=== PATIENT | male | born 1930 | race Caucasian/White ===

== ENCOUNTER 2017-02-11 10:58 | Day surgery (SDC) | payer OTHER ==
[2017-02-11] VITALS (9 sets, daily range): BP systolic 114–156; BP diastolic 52–65; PULSE 60–66; RESP 15–20; Ht 170.2 cm; Wt 75.7 kg
[~2017-02-11] VITALS: Ht 170.2 cm; Wt 75.7 kg
[~2017-02-11 10:58] MED LIST: BENA40TA41 PO; CLOP75TA4 PO; GLIM2TAB PO
[2017-02-11] MEDS ORDERED: FURO20TA3 PO (11:58)
[2017-02-11] MEDS ORDERED: CHOL400T10 PO (11:58)
[2017-02-11] MEDS ORDERED: MECL-77 PO (11:58)
[2017-02-11] MEDS ORDERED: TAMS0.4C2 PO (11:58)
[2017-02-11] MEDS ORDERED: DOXA1TAB38 PO (12:39)
[2017-02-11] MEDS ORDERED: FENTAnyl 50 MCG/ML VIAL ONE (13:00)
[2017-02-11] MEDS ORDERED: IODIXANOL LOCM 100 ML BTL ONE ×2 (13:00→14:18)
[2017-02-11] MEDS ORDERED: LIDOCAINE 1% (MDV) 20 ML INJ ONE (13:00)
[2017-02-11] MEDS ORDERED: MIDAZOLAM 1 MG/ML 2 ML INJ ONE (13:00)
[2017-02-11] MEDS ORDERED: DIPHENHYDRAMINE 50 MG INJ ONE (13:02)
[2017-02-11] MEDS ORDERED: METHYLPREDNISOLONE 125 MG INJ ONE (13:02)
[2017-02-11] MEDS ORDERED: BIVALIRUDIN 250MG /NS 50 ML 50 ML IVPB ONE (14:22)
[2017-02-11] MEDS ORDERED: hydrALAzine 20 MG INJ IV PRN (14:30)
[2017-02-11] MEDS ORDERED: HOLD all METFORMIN and METFORMIN CONTAINING medications for 48 hours post procedure. Chec XX SCH (14:30)
--- NOTE | 2017-02-11 14:40 | OPR ---
Date/Time of Note Date/Time of Note DATE: 02/11/17 TIME: 14:28 Operative Report Preoperative Diagnosis unstable angina, CAD/CABG Postoperative Diagnosis unstable angina, CAD/CABG. Negative iFR of Cx artery Surgeon see signature line Program Admin none Anesthesia Type: moderate sedation Estimated Blood Loss: minimal Transfusion none Specimen none Grafts/Implants none Complications none Procedure Description Procedure Date: 02/11/2017 Cloth Feeder/surgeon: Yonny Lopez MD. Procedures Performed: 1)Left heart catheterization with selective left and right coronary angiography. 2)Angiography of bypass grafts including RABAGO-LAD, radial artery-OM 3)Selective angiography of left subclavian 4)Selective angiography of right femoral artery with Perclose closure device 5)iFR of ostial Cx artery (negative at 0.93) Pre-operative Diagnosis:unstable angina, CAD/CABG Post-operative Diagnosis:same Indications: 87 yo M with a h/o CAD s/p CABG 2001, PCI of RCA 2006, HTN, CKD, PPM, who presented with chest pain, dyspnea, labile BPs. He had workup including cardiac CT which showed possible in stent restenosis of the distal RCA stent for which a cardiac cath was performed. Description of Procedure: After informed consent, the patient was brought to the cardiac catheterization lab. The procedure site was prepped and draped in usual manner. The patient was premedicated with versed 1 mg and fentanyl 50 mcg as well as benadryl 25mg IV and solumedrol 125mg IV for questionable contrast allergy. 10 mL lidocaine was injected into the right groin. Next using a micropuncture and the Seldinger technique, the 6 persian sheath was inserted into the right femoral artery. Next using the JL4 and JR4, selective angiography of the left and right coronary arteries were obtained as well as the radial artery to OM and RABAGO-LAD and left subclavian artery. The pigtail was then advanced into the ventricle and hemodynamics obtained. Left ventricle angiography was not obtained. The decision was made to proceed with iFR of the ostial Cx due to the eccentric/ hazy appearance of the lesion. A 6 persian JL 3.5 guide was advanced and engaged into the left coronary artery. After appropriate anticoagulation, the iFR wire was zeroed, then equalized in the left main artery and advanced past the lesion. iFR was measured at 0.93 which is normal. Next all equipment was removed and hemostasis was achieved by Perclose closure device. Findings: Anatomy/Hemodynamics: Left main: normal LAD:prox 100%, fills via RABAGO Circumflex: ostial hazy/eccentric 50% Obtuse marginal1 prox 100%, fills via radial artery bypass Obtuse marginal 2: large vessel without disease RCA: mid stent patent, distal stent 30-40% ISR PDA:luminal irregularities PLV:luminal irregularities Radial artery-OM: patent RABAGO-LAD: patent Left subclavian: free of ostial disease LV angiography:not done LV-Ao: no gradient LVEDP: 5 mmHg Medications used: Versed 1 Fentanyl 50 benadryl 25 solumedrol 125 angiomax Equipment used: 6 persian JL 3.5 guide iFR wire Estimated blood loss<10 mL. Specimen: none Grafts/implants: none Complications: none Assessment: iFR of ostial Cx lesion which was normal Mild ISR of distal RCA stent which was thought to be significant on CT (often difficult to evaluate stents by CT) CAD s/p CABG with patent grafts HTN PPM Plan: -observe in PACU for 4 hours -transfer back to [facility] if no complications -continue plavix as monotherapy (ASA allergy) -medical management otherwise YONNY LOPEZ Feb 11, 2017 14:40
--- NOTE | 2017-02-11 14:40 | OPR ---
Date/Time of Note Date/Time of Note DATE: 02/11/17 TIME: 14:28 Operative Report Preoperative Diagnosis unstable angina, CAD/CABG Postoperative Diagnosis unstable angina, CAD/CABG. Negative iFR of Cx artery Surgeon see signature line Commercial Photographer none Anesthesia Type: moderate sedation Estimated Blood Loss: minimal Transfusion none Specimen none Grafts/Implants none Complications none Procedure Description Procedure Date: 02/11/2017 Residential Counselor/surgeon: Yonny Lopez MD. Procedures Performed: 1)Left heart catheterization with selective left and right coronary angiography. 2)Angiography of bypass grafts including RABAGO-LAD, radial artery-OM 3)Selective angiography of left subclavian 4)Selective angiography of right femoral artery with Perclose closure device 5)iFR of ostial Cx artery (negative at 0.93) Pre-operative Diagnosis:unstable angina, CAD/CABG Post-operative Diagnosis:same Indications: 87 yo M with a h/o CAD s/p CABG 2001, PCI of RCA 2006, HTN, CKD, PPM, who presented with chest pain, dyspnea, labile BPs. He had workup including cardiac CT which showed possible in stent restenosis of the distal RCA stent for which a cardiac cath was performed. Description of Procedure: After informed consent, the patient was brought to the cardiac catheterization lab. The procedure site was prepped and draped in usual manner. The patient was premedicated with versed 1 mg and fentanyl 50 mcg as well as benadryl 25mg IV and solumedrol 125mg IV for questionable contrast allergy. 10 mL lidocaine was injected into the right groin. Next using a micropuncture and the Seldinger technique, the 6 albanian sheath was inserted into the right femoral artery. Next using the JL4 and JR4, selective angiography of the left and right coronary arteries were obtained as well as the radial artery to OM and RABAGO-LAD and left subclavian artery. The pigtail was then advanced into the ventricle and hemodynamics obtained. Left ventricle angiography was not obtained. The decision was made to proceed with iFR of the ostial Cx due to the eccentric/ hazy appearance of the lesion. A 6 albanian JL 3.5 guide was advanced and engaged into the left coronary artery. After appropriate anticoagulation, the iFR wire was zeroed, then equalized in the left main artery and advanced past the lesion. iFR was measured at 0.93 which is normal. Next all equipment was removed and hemostasis was achieved by Perclose closure device. Findings: Anatomy/Hemodynamics: Left main: normal LAD:prox 100%, fills via RABAGO Circumflex: ostial hazy/eccentric 50% Obtuse marginal1 prox 100%, fills via radial artery bypass Obtuse marginal 2: large vessel without disease RCA: mid stent patent, distal stent 30-40% ISR PDA:luminal irregularities PLV:luminal irregularities Radial artery-OM: patent RABAGO-LAD: patent Left subclavian: free of ostial disease LV angiography:not done LV-Ao: no gradient LVEDP: 5 mmHg Medications used: Versed 1 Fentanyl 50 benadryl 25 solumedrol 125 angiomax Equipment used: 6 albanian JL 3.5 guide iFR wire Estimated blood loss<10 mL. Specimen: none Grafts/implants: none Complications: none Assessment: iFR of ostial Cx lesion which was normal Mild ISR of distal RCA stent which was thought to be significant on CT (often difficult to evaluate stents by CT) CAD s/p CABG with patent grafts HTN PPM Plan: -observe in PACU for 4 hours -transfer back to [facility] if no complications -continue plavix as monotherapy (ASA allergy) -medical management otherwise YONNY LOPEZ Feb 11, 2017 14:40
--- NOTE | 2017-02-11 14:40 | OPR ---
Date/Time of Note Date/Time of Note DATE: 02/11/17 TIME: 14:28 Operative Report Preoperative Diagnosis unstable angina, CAD/CABG Postoperative Diagnosis unstable angina, CAD/CABG. Negative iFR of Cx artery Surgeon see signature line Hospital Carrier none Anesthesia Type: moderate sedation Estimated Blood Loss: minimal Transfusion none Specimen none Grafts/Implants none Complications none Procedure Description Procedure Date: 02/11/2017 Log Handler/surgeon: Yonny Lopez MD. Procedures Performed: 1)Left heart catheterization with selective left and right coronary angiography. 2)Angiography of bypass grafts including RABAGO-LAD, radial artery-OM 3)Selective angiography of left subclavian 4)Selective angiography of right femoral artery with Perclose closure device 5)iFR of ostial Cx artery (negative at 0.93) Pre-operative Diagnosis:unstable angina, CAD/CABG Post-operative Diagnosis:same Indications: 87 yo M with a h/o CAD s/p CABG 2001, PCI of RCA 2006, HTN, CKD, PPM, who presented with chest pain, dyspnea, labile BPs. He had workup including cardiac CT which showed possible in stent restenosis of the distal RCA stent for which a cardiac cath was performed. Description of Procedure: After informed consent, the patient was brought to the cardiac catheterization lab. The procedure site was prepped and draped in usual manner. The patient was premedicated with versed 1 mg and fentanyl 50 mcg as well as benadryl 25mg IV and solumedrol 125mg IV for questionable contrast allergy. 10 mL lidocaine was injected into the right groin. Next using a micropuncture and the Seldinger technique, the 6 korean sheath was inserted into the right femoral artery. Next using the JL4 and JR4, selective angiography of the left and right coronary arteries were obtained as well as the radial artery to OM and RABAGO-LAD and left subclavian artery. The pigtail was then advanced into the ventricle and hemodynamics obtained. Left ventricle angiography was not obtained. The decision was made to proceed with iFR of the ostial Cx due to the eccentric/ hazy appearance of the lesion. A 6 korean JL 3.5 guide was advanced and engaged into the left coronary artery. After appropriate anticoagulation, the iFR wire was zeroed, then equalized in the left main artery and advanced past the lesion. iFR was measured at 0.93 which is normal. Next all equipment was removed and hemostasis was achieved by Perclose closure device. Findings: Anatomy/Hemodynamics: Left main: normal LAD:prox 100%, fills via RABAGO Circumflex: ostial hazy/eccentric 50% Obtuse marginal1 prox 100%, fills via radial artery bypass Obtuse marginal 2: large vessel without disease RCA: mid stent patent, distal stent 30-40% ISR PDA:luminal irregularities PLV:luminal irregularities Radial artery-OM: patent RABAGO-LAD: patent Left subclavian: free of ostial disease LV angiography:not done LV-Ao: no gradient LVEDP: 5 mmHg Medications used: Versed 1 Fentanyl 50 benadryl 25 solumedrol 125 angiomax Equipment used: 6 korean JL 3.5 guide iFR wire Estimated blood loss<10 mL. Specimen: none Grafts/implants: none Complications: none Assessment: iFR of ostial Cx lesion which was normal Mild ISR of distal RCA stent which was thought to be significant on CT (often difficult to evaluate stents by CT) CAD s/p CABG with patent grafts HTN PPM Plan: -observe in PACU for 4 hours -transfer back to [facility] if no complications -continue plavix as monotherapy (ASA allergy) -medical management otherwise YONNY LOPEZ Feb 11, 2017 14:40
== END 2017-02-11 15:40 | disposition short-term general hospital (02) ==
LOC: SDS 10:58
PROVIDERS: ATTEND Internal Medicine Interventional Cardiology
DX: I25.110 Atherosclerotic heart disease of native coronary artery with unstable angina pectoris (principal); Z95.1 Presence of aortocoronary bypass graft; I13.0 Hypertensive heart and chronic kidney disease with heart failure and stage 1 through stage 4 chronic kidney disease, or unspecified chronic kidney disease; N18.9 Chronic kidney disease, unspecified; I50.31 Acute diastolic (congestive) heart failure
CPT/HCPCS: 93459; 93571; C1760; C1887; J0583; J1200; J1644; J2250; J2930; J3010; Q9967

== ENCOUNTER 2017-02-20 12:57 | Emergency (ER) | END 2017-02-20 15:43 | disposition home or self-care (01) | DX: G44.229 Chronic tension-type headache, not intractable (principal); I12.9 Hypertensive chronic kidney disease with stage 1 through stage 4 chronic kidney disease, or unspecified chronic kidney disease; N18.9 Chronic kidney disease, unspecified; I50.9 Heart failure, unspecified; R40.2142 Coma scale, eyes open, spontaneous, at arrival to emergency department; R40.2252 Coma scale, best verbal response, oriented, at arrival to emergency department; R40.2362 Coma scale, best motor response, obeys commands, at arrival to emergency department; R93.0 Abnormal findings on diagnostic imaging of skull and head, not elsewhere classified; Z98.61 Coronary angioplasty status ==

== ENCOUNTER 2017-06-19 14:16 | Emergency (ER) | END 2017-06-19 18:11 | disposition home or self-care (01) ==

== ENCOUNTER → 2017-06-19 | Emergency (ER) | END | disposition home or self-care (01) ==

== ENCOUNTER 2017-11-17 13:24 | Observation (INO) | END 2017-11-18 14:33 | disposition home or self-care (01) ==

== ENCOUNTER 2017-12-25 00:20 | Emergency (ER) | END 2017-12-25 01:18 | disposition left against medical advice (07) ==

== ENCOUNTER 2018-06-10 19:44 | Emergency (ER) | payer MEDICARE, OTHER ==
[~2018-06-10] VITALS: Ht 170.2 cm; Wt 76.0 kg
[~2018-06-10 19:44] MED LIST changes: +ATOR20TA38 PO; -BENA40TA41 PO; +BENA40TA56 PO; +CHOL200073 PO; +CLOP75TA27 PO; -CLOP75TA4 PO; +DOCU-144 PO; +FER325 PO; +FURO40TA4 PO; +HYDR-3672 PO; +LIGH1DRO OP; +METF500T24 PO
[2018-06-10 19:55] VITALS: Ht 170.2 cm; Wt 76.0 kg
--- NOTE | 2018-06-10 20:15 | ERD ---
ER Documentation Chief Complaint Chief Complaint SOB since am resolved upon EMS arrival. Dizziness x 2 years per pt. HPI 88-year-old man brought in by EMS from home for complaints of dizziness, he initially told him he had shortness of breath although during my HPI he is denying difficulty breathing. Patient denies chest pain, no weakness in his arms or legs, no nausea or vomiting, no diarrhea, no headache or blurry vision. Patient was transported here by EMS without further complications. ROS All systems reviewed and are negative except as per history of present illness. Medications Home Meds Active Scripts Meclizine Hcl* (Antivert*) 12.5 Mg Tab, 25 MG PO Q6H PRN for DIZZINESS, #20 TAB Prov:KIRAN TOBAR MD 06/10/18 Reported Medications Tamsulosin Hcl* (Tamsulosin Hcl*) 0.4 Mg Cap.er.24h, 0.4 MG PO HS, CAP 06/10/18 Light Mineral Oil/Min Oil/Pf (RETAINE MGD EYE DROPS) 1 Each Droperette, 1 EACH OP DAILY 11/17/17 Ferrous Sulfate* (Ferrous Sulfate*) 325 Mg Tabec, 325 MG PO DAILY, TAB 11/17/17 Docusate Sodium* (Colace*) 100 Mg Capsule, 100 MG PO DAILY, #30 CAP 11/17/17 Glimepiride* (Glimepiride*) 2 Mg Tablet, 2 MG PO WITH BREAKFAST DINNE, TAB 11/17/17 Furosemide* (Furosemide*) 40 Mg Tablet, 40 MG PO DAILY, TAB 11/17/17 Atorvastatin Calcium* (Atorvastatin Calcium*) 20 Mg Tablet, 20 MG PO QHS, #30 TAB 11/17/17 Cholecalciferol (Vitamin D3) (VITAMIN D-3) 2,000 Unit Capsule, 2000 UNIT PO DAILY, CAP 06/19/17 Clopidogrel Bisulfate (Clopidogrel) 75 Mg Tablet, 75 MG PO DAILY, #30 TAB 06/19/17 Hydralazine Hcl* (Hydralazine Hcl*) 50 Mg Tab, 50 MG PO TID, #90 TAB 06/19/17 Benazepril Hcl* (Benazepril Hcl*) 40 Mg Tablet, 40 MG PO BID, #30 TAB 06/19/17 Metformin Hcl* (Metformin Hcl*) 500 Mg Tablet, 500 MG PO WITH BREAKFAST DINNE, #60 TAB 06/19/17 Allergies Allergies: Coded Allergies: Cephalosporins (Unverified Allergy, Unknown, 06/10/18) aspirin (Unverified Allergy, Unknown, 06/10/18) cefotaxime (Verified Allergy, Unknown, 06/10/18) PMhx/Soc CAD, CABG, pacemaker, CHF, hypertension History of Surgery: Yes (open heart sx) Anesthesia Reaction: No Hx Neurological Disorder: No Hx Respiratory Disorders: No Hx Cardiac Disorders: Yes (pacemaker) Hx Psychiatric Problems: No Hx Miscellaneous Medical Probl: No Hx Alcohol Use: No Hx Substance Use: No Hx Tobacco Use: No FmHx Family History: No diabetes Physical Exam Vitals Vital Signs Date Temp Pulse Resp B/P (MAP) Pulse Ox O2 O2 Flow FiO2 Time Delivery Rate 06/10/18 65 16 124/62 98 Room Air 21:43 (82) 06/10/18 68 16 154/72 96 Room Air 20:38 (99) 06/10/18 97.8 66 15 154/72 98 19:55 (99) Physical Exam Const: No acute distress, afebrile, appears anxious Head: Atraumatic Eyes: Normal Conjunctiva ENT: Normal External Ears, Nose and Mouth. Neck: Full range of motion. No meningismus. Resp: Clear to auscultation bilaterally Cardio: Regular rate and rhythm, no murmurs Abd: Soft, non tender, non distended. Normal bowel sounds Skin: No petechiae or rashes Back: No midline or flank tenderness Ext: No cyanosis, or edema Neur: Awake and alert x3, no focal deficits or facial asymmetry Psych: Anxious, agitated Result Diagram: 06/10/18201206/10/182012 Results 24 hrs Laboratory Tests Test 06/10/18 20:13 06/10/18 21:00 White Blood Count 4.5 10^3/ul Red Blood Count 3.24 10^6/ul Hemoglobin 10.5 g/dl Hematocrit 32.0 % Mean Corpuscular Volume 98.8 fl Mean Corpuscular Hemoglobin 32.4 pg Mean Corpuscular Hemoglobin Concent 32.8 g/dl Red Cell Distribution Width 13.7 % Platelet Count 149 10^3/UL Mean Platelet Volume 10.0 fl Immature Granulocytes % 0.200 % Neutrophils % 44.9 % Lymphocytes % 42.8 % Monocytes % 10.1 % Eosinophils % 1.6 % Basophils % 0.4 % Nucleated Red Blood Cells % 0.0 /100WBC Immature Granulocytes # 0.010 10^3/ul Neutrophils # 2.0 10^3/ul Lymphocytes # 1.9 10^3/ul Monocytes # 0.5 10^3/ul Eosinophils # 0.1 10^3/ul Basophils # 0.0 10^3/ul Nucleated Red Blood Cells # 0.0 10^3/ul Sodium Level 142 mmol/L Potassium Level 3.8 mmol/L Chloride Level 101 mmol/L Carbon Dioxide Level 30 mmol/L Anion Gap 11 Blood Urea Nitrogen 24 mg/dl Creatinine 1.32 mg/dl Est Glomerular Filtrat Rate mL/min mL/min Glucose Level 179 mg/dl Calcium Level 9.5 mg/dl Total Bilirubin 0.8 mg/dl Direct Bilirubin 0.00 mg/dl Indirect Bilirubin 0.8 mg/dl Aspartate Amino Transf (AST/SGOT) 40 IU/L Alanine Aminotransferase (ALT/SGPT) 30 IU/L Alkaline Phosphatase 42 IU/L Troponin I 0.026 ng/ml B-Type Natriuretic Peptide 350 PG/ML Total Protein 7.4 g/dl Albumin 4.3 g/dl Globulin 3.10 g/dl Albumin/Globulin Ratio 1.38 Lipase 309 U/L Urine Color COLORLESS Urine Clarity CLEAR Urine pH 6.0 Urine Specific [place] 1.004 Urine Ketones NEGATIVE mg/dL Urine Nitrite NEGATIVE mg/dL Urine Bilirubin NEGATIVE mg/dL Urine Urobilinogen NEGATIVE mg/dL Urine Leukocyte Esterase NEGATIVE Sharon/ul Urine Hemoglobin NEGATIVE mg/dL Urine Glucose NEGATIVE mg/dL Urine Total Protein NEGATIVE mg/dl Current Medications Medications Dose Sig/Mario Start Time Status Last (Trade) Ordered Route PRN Stop Time Admin Dose Reason Admin Lorazepam 0.5 mg ONCE ONCE 06/10/18 DC 06/10/18 (Ativan) IV 20:30 20:31 06/10/18 20:31 Ondansetron 4 mg ONCE STAT 06/10/18 DC 06/10/18 HCl (Zofran IV 20:23 20:30 Inj) 06/10/18 20:24 Procedures/MDM IV line was established patient was placed on hospital monitor rhythm strip revealed a sinus rhythm at about 70 bpm with upright P and T waves. Patient was afebrile EKG performed, read by me revealed a normal sinus rhythm at 66 bpm, left axis deviation, right bundle branch block, no concerning ST elevations or depressions noted Chest X-ray 1V Interpreted by me: Soft Tissue: No acute abnormalities Bones: No acute abnormalities Mediastinum/Cardiac Silhouette/Lungs: No acute abnormalities I administered lorazepam 0.5 mg IV x1 and Zofran 4 mg IV for anxiety and dizziness. CBC and electrolytes are normal, liver function tests normal, troponin negative, BNP low, urinalysis negative for infection. Patient's vital signs are normal at this time he has no signs or symptoms of CHF and his anxiety and dizziness have resolved. He will be discharged to follow-up with PMD. Differential diagnoses considered, included but not limited to acute coronary syndrome, pulmonary embolism, aortic dissection, abdominal aortic aneurysm, sepsis, stroke, meningitis, encephalitis, pneumonia, appendicitis, cholecystitis, bowel obstruction, pyelonephritis, nephrolithiasis, cystitis, as well as metabolic, hematologic, and electrolyte abnormalities. As well as abscess, cellulitis, fractures, and dislocations. Patient feels much better at this time, and vital signs are normal, symptoms have improved. I did give strict instructions to return to the ED if symptoms continue or worsen, patient will otherwise follow-up with primary care physician. Patient understood instructions and agreed to plan. Disclaimer: Inadvertent spelling and grammatical errors are likely due to EHR/dictation software use and do not reflect on the overall quality of patient care. Also, please note that the electronic time recorded on this note does not necessarily reflect the actual time of the patient encounter. Departure Diagnosis: Primary Impression: Dizziness Condition: Good KIRAN TOBAR MD Jun 10, 2018 20:15
[2018-06-10] MEDS ORDERED: ONDANSETRON 4 MG INJ IV STA (20:23)
[2018-06-10] MEDS ORDERED: LORAZEPAM 2 MG INJ IV ONE (20:30)
[2018-06-10] MEDS ORDERED: TAMS0.4C2 PO (21:04)
[2018-06-10] MEDS ORDERED: MECL12.574 PO (21:17)
[2018-06-10 21:43] VITALS: BP 124/62; PULSE 65; RESP 16
== END 2018-06-10 21:54 | disposition home or self-care (01) ==
LOC: E/R 19:44
DX: R42 Dizziness and giddiness (principal); R40.2142 Coma scale, eyes open, spontaneous, at arrival to emergency department; R40.2362 Coma scale, best motor response, obeys commands, at arrival to emergency department; R40.2252 Coma scale, best verbal response, oriented, at arrival to emergency department; I25.10 Atherosclerotic heart disease of native coronary artery without angina pectoris; I50.9 Heart failure, unspecified; I10 Essential (primary) hypertension; Z95.1 Presence of aortocoronary bypass graft; Z95.0 Presence of cardiac pacemaker; Z79.82 Long term (current) use of aspirin; Z79.01 Long term (current) use of anticoagulants
CPT/HCPCS: 71045; 80053; 81003; 83690; 83880; 84484; 85025; 93005; J2060; J2405; 36415; 96374; 96375

== ENCOUNTER 2018-07-22 08:25 | Emergency (ER) | payer MEDICARE, OTHER ==
[~2018-07-22] VITALS: Ht 170.2 cm; Wt 73.4 kg
[~2018-07-22 08:25] MED LIST changes: +MECL12.574 PO; +TAMS0.4C2 PO
[2018-07-22] MEDS ORDERED: SOD CHLORIDE 0.9% 500 ML IV STA (08:34)
[2018-07-22 08:48] VITALS: Ht 170.2 cm; Wt 73.4 kg
[2018-07-22] MEDS ORDERED: ALBUTEROL/IPRATROPIUM (NEB) 3 ML AMP HHN STA (13:55)
--- NOTE | 2018-07-22 13:58 | ERD ---
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 The patient had been brought into the emergency department by EMS after he was stating he was complaining of generalized weakness and intermittent palpitations for several days. EMS indicated that they have been on the patient several times and he often is very anxious. He also indicated this feels similar to his previous anxiety attacks. He however denies any chest pain. He has no shortness of breath at rest or exertion. He denies any frequency urgency or dysuria. He denies a headache. He denies any recent hospitalizations. ROS All systems reviewed and are negative except as per history of present illness. Medications Home Meds Active Scripts Meclizine Hcl* (Antivert*) 12.5 Mg Tab, 25 MG PO Q6H PRN for DIZZINESS, #20 TAB Prov:KIRAN TOBAR MD 06/10/18 Reported Medications Tamsulosin Hcl* (Tamsulosin Hcl*) 0.4 Mg Cap.er.24h, 0.4 MG PO HS, CAP 06/10/18 Light Mineral Oil/Min Oil/Pf (RETAINE MGD EYE DROPS) 1 Each Droperette, 1 EACH OP DAILY 11/17/17 Ferrous Sulfate* (Ferrous Sulfate*) 325 Mg Tabec, 325 MG PO DAILY, TAB 11/17/17 Docusate Sodium* (Colace*) 100 Mg Capsule, 100 MG PO DAILY, #30 CAP 11/17/17 Glimepiride* (Glimepiride*) 2 Mg Tablet, 2 MG PO WITH BREAKFAST DINNE, TAB 11/17/17 Furosemide* (Furosemide*) 40 Mg Tablet, 40 MG PO DAILY, TAB 11/17/17 Atorvastatin Calcium* (Atorvastatin Calcium*) 20 Mg Tablet, 20 MG PO QHS, #30 TAB 11/17/17 Cholecalciferol (Vitamin D3) (VITAMIN D-3) 2,000 Unit Capsule, 2000 UNIT PO DAILY, CAP 06/19/17 Clopidogrel Bisulfate (Clopidogrel) 75 Mg Tablet, 75 MG PO DAILY, #30 TAB 06/19/17 Hydralazine Hcl* (Hydralazine Hcl*) 50 Mg Tab, 50 MG PO TID, #90 TAB 06/19/17 Benazepril Hcl* (Benazepril Hcl*) 40 Mg Tablet, 40 MG PO BID, #30 TAB 06/19/17 Metformin Hcl* (Metformin Hcl*) 500 Mg Tablet, 500 MG PO WITH BREAKFAST DINNE, #60 TAB 06/19/17 Allergies Allergies: Coded Allergies: Cephalosporins (Unverified Allergy, Unknown, 06/10/18) aspirin (Unverified Allergy, Unknown, 06/10/18) cefotaxime (Verified Allergy, Unknown, 06/10/18) PMhx/Soc History of Surgery: Yes (cabg, pacemaker, cholecystectomy, appendectomy) Anesthesia Reaction: No Hx Neurological Disorder: No Hx Respiratory Disorders: No Hx Cardiac Disorders: Yes (htn) Hx Psychiatric Problems: No Hx Miscellaneous Medical Probl: Yes (DM) Hx Alcohol Use: No Hx Substance Use: No Hx Tobacco Use: No Smoking Status: Never smoker Physical Exam Vitals Vital Signs Date Temp Pulse Resp B/P (MAP) Pulse Ox O2 O2 Flow FiO2 Time Delivery Rate 07/22/18 78 23 118/51 95 Room Air 12:00 (73) 07/22/18 98.2 77 22 125/56 97 Room Air 11:15 (79) 07/22/18 98.2 77 23 117/49 95 08:48 (71) Physical Exam Constitutional:Well-developed. Well-nourished. HEENT:Normocephalic. Atraumatic.Pupils were equal round reactive to light. Moist mucous membranes.No tonsillar exudates. Neck: No nuchal rigidity. No lymphadenopathy. No posterior cervical spine tenderness or step-offs. Respiratory: Not using accessory muscles of respiration.Lungs were clear to auscultation bilaterally. No rhonchi. No rales. No wheezing. Cardiovascular: Regular rate regular rhythm.No murmurs. No rubs were appreciated.S1, S2 normal. Distal pulses are palpable 2+ bilaterally. GI: Abdomen was soft. Nontender. Non Distended. No pulsatile abdominal masses or bruits. No rebound. No guarding. Bowel sounds were present and normal. Muscle skeletal: Full range of motion of both the upper and lower extremities bilaterally.Normal muscle tone.No assymetrical calf tenderness or swelling. Skin: No petechia, no purpura. No lesions on the palms or the soles of the feet. No maculopapular rash. NEURO: Patient was alert, awake, orientated x3.No facial droop. Gait not observed as patient was too weak to ambulate.Speech had regular rate and rhythm. No focal neurological deficits. Result Diagram: 07/22/18 0901 07/22/18 1007 Results 24 hrs Laboratory Tests Test 07/22/18 08:34 07/22/18 09:01 07/22/18 10:07 07/22/18 12:45 Blood Gas Blood arterial Specimen Source Arterial Blood 07/22/2018 9:19: Date Drawn 49 AM Arterial Blood 7.433 pH (Temp corrected ) Arterial Blood 36.2 mmhg pCO2 (Temp correct) Arterial Blood 80.9 mmHG pO2 (Temp corrected ) Arterial Blood 23.7 mmol/L HCO3 Arterial Blood -0.3 mmol/L Base Excess Arterial Blood 95.4 mmHG Oxygen Saturati on Filiberto Test ACCEPTAB Arterial Blood Right Radial Gas Puncture Site Arterial 0.3 % Blood Carboxyhe moglobin Arterial Blood 0.3 % Methemoglobin Blood Gas A-a 25.5 mmHg O2 Differential Oxyhemoglobin 94.8 % Percent Blood Gas 37.0 C Temperature Blood Gas ROOM AIR Modality FiO2 21.0 % Blood Gas RT Notified Whom Blood Gas 07/22/2018 9:23: Notified Time 16 AM White Blood 7.8 10^3/ul Count Red Blood Count 3.10 10^6/ul Hemoglobin 10.0 g/dl Hematocrit 30.0 % Mean 96.8 fl Corpuscular Volume Mean 32.3 pg Corpuscular Hemoglobin Mean 33.3 g/dl Corpuscular Hemoglobin Conc ent Red Cell 14.5 % Distribution Width Platelet Count 246 10^3/UL Mean Platelet 10.0 fl Volume Immature 1.000 % Granulocytes % Neutrophils % 76.8 % Lymphocytes % 13.1 % Monocytes % 6.7 % Eosinophils % 1.9 % Basophils % 0.5 % Nucleated Red 0.0 /100WBC Blood Cells % Immature 0.080 10^3/ul Granulocytes # Neutrophils # 6.0 10^3/ul Lymphocytes # 1.0 10^3/ul Monocytes # 0.5 10^3/ul Eosinophils # 0.2 10^3/ul Basophils # 0.0 10^3/ul Nucleated Red 0.0 10^3/ul Blood Cells # Prothrombin 13.2 Sec Time Prothrombin 1.0 Time Ratio INR 0.99 International Normalized Rati o Activated 22.8 Sec Partial Thrombo plast Time Sodium Level 134 mmol/L Potassium Level 6.9 mmol/L 4.4 mmol/L Chloride Level 98 mmol/L Carbon Dioxide 25 mmol/L Level Anion Gap 11 Blood Urea 27 mg/dl Nitrogen Creatinine 1.09 mg/dl Est Glomerular mL/min Filtrat Rate mL/min Glucose Level 171 mg/dl Calcium Level 9.0 mg/dl Total Bilirubin 1.2 mg/dl Direct 0.00 mg/dl Bilirubin Indirect 1.2 mg/dl Bilirubin Aspartate Amino 72 IU/L Transf (AST/SGO T) Alanine 20 IU/L Aminotransferas e (ALT/SGPT) Alkaline 43 IU/L Phosphatase Creatine Kinase 81 IU/L Creatine Kinase 1.0 Index Creatinine 0.82 ng/ml Kinase MB (Mass) Troponin I 0.039 ng/ml Total Protein 8.3 g/dl Albumin 4.5 g/dl Globulin 3.80 g/dl Albumin/Globuli 1.18 n Ratio Urine Color YELLOW Urine Clarity CLEAR Urine pH 5.0 Urine Specific 1.008 [place] Urine Ketones NEGATIVE mg/dL Urine Nitrite NEGATIVE mg/dL Urine Bilirubin NEGATIVE mg/dL Urine NEGATIVE mg/dL Urobilinogen Urine Leukocyte NEGATIVE Sharon/ul Esterase Urine 1 /HPF Microscopic RBC Urine 1 /HPF Microscopic WBC Urine 1+ mg/dL Hemoglobin Urine Glucose NEGATIVE mg/dL Urine Total NEGATIVE mg/dl Protein Current Medications Medications Dose Sig/Mario Start Time Status Last (Trade) Ordered Route PRN Stop Time Admin Dose Reason Admin Sodium 500 ml @ Q1H STAT 07/22/18 DC 07/22/18 Chloride 500 mls/hr IV 08:34 09:04 07/22/18 09:33 Procedures/MDM This is an 88-year-old male that presented to the emergency department generalized weakness. Patient was very pleasant and showed no signs of respiratory distress. He was placed on a lunchroom monitor continuous pulse oximetry and IV access was established by nursing staff. The patient had no leukocytosis. The patient no severe electrolyte abnormalities. I obtained a 12-lead EKG tracing to rule out for atypical myocardial ischemia. 12 Lead EKG tracing ordered and reviewed by myself showed: Normal sinus rhythm of 71 bpm and no arrhythmia. FL interval normal. QRS duration normal. No ST segment elevation. Left axis deviation No ST segment depression. No changes consistent with acute ischemia. I obtained a 1 view chest radiograph reviewed by myself the radiologist. 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 No acute alveolar infiltrates, edema, or effusions. The patient was able to be calmed down with verbal de-escalation. I did feel this could his generalized weakness and palpitations could have been a result of an acute anxiety reaction. There is no evidence of congestive heart failure exacerbation. No evidence of atypical myocardial ischemia. The patient no risk factors for pulmonary embolism. He had no strokelike symptoms to suggest a cerebrovascular accident. There is no evidence of urinary tract infection. Observation Note: Time: 5 hours Family Hx: No Hypertension Evaluation: Multiple exams showed improving symptoms and no evidence of recurrence of his palpitations and I did feel he can be safely discharged home. He lives with his son who we are able to speak with him we will arrange for able to transfer for the patient to be taken safely back to his residence. Departure Diagnosis: Primary Impression: Palpitations Additional Impression: Generalized weakness Condition: CARLOS Rose MD Jul 22, 2018 13:55
[2018-07-22 18:50] VITALS: BP 115/50; PULSE 74; RESP 26
== END 2018-07-22 18:50 | disposition home or self-care (01) ==
LOC: E/R 08:25
DX: R00.2 Palpitations (principal); E11.9 Type 2 diabetes mellitus without complications; I10 Essential (primary) hypertension; R06.02 Shortness of breath; Z79.84 Long term (current) use of oral hypoglycemic drugs; Z95.0 Presence of cardiac pacemaker; Z95.1 Presence of aortocoronary bypass graft; Z79.01 Long term (current) use of anticoagulants
CPT/HCPCS: 36600; 71045; 80053; 81001; 82550; 82553; 82803; 83880; 84132; 84484; 85025; 85610; 85730; 93005; 94644; 99285; J7040

== ENCOUNTER 2018-12-05 12:36 | Inpatient (IN) | payer MEDICARE, OTHER ==
[~2018-12-05] VITALS: Ht 170.2 cm; Wt 77.2 kg
[~2018-12-05 12:36] MED LIST changes: +CARB1TAB34 PO; +CYAN500T46 PO; +MECL-77 PO; +MURO1282 BOTH EYES; +TRAV2.5D BOTH EYES
[2018-12-05] MEDS ORDERED: morphine 4 MG/ML VIAL IV STA (12:51)
[2018-12-05] MEDS ORDERED: ONDANSETRON 4 MG INJ IV STA (12:51)
[2018-12-05] MEDS ORDERED: LORAZEPAM 2 MG INJ IV ONE (13:00)
[2018-12-05] MEDS ORDERED: POTASSIUM CHLORIDE (SR) 20 MEQ TAB PO STA (14:35)
[2018-12-05] MEDS ORDERED: ACETAMINOPHEN 325 MG TAB PO PRN ×2 (15:00→17:00)
[2018-12-05] MEDS ORDERED: ONDANSETRON 4 MG INJ IV PRN (15:00)
[2018-12-05] MEDS ORDERED: morphine 2 MG INJ IV PRN (17:00)
[2018-12-05] MEDS ORDERED: NACL 0.9% 3 ML SYG IV SCH (17:00)
[2018-12-05] MEDS ORDERED: GLUCAGON 1 MG INJ IM PRN (17:30)
[2018-12-05] MEDS ORDERED: DEXTROSE 50% 50 ML SYRINGE IV PRN ×2 (17:30)
[2018-12-05] MEDS ORDERED: GLUCOSE GEL 15 GRAM TUBE PO PRN ×2 (17:30)
[2018-12-05] MEDS ORDERED: GLUCOSE GEL 15 GRAM TUBE BUCCAL PRN (17:30)
[2018-12-05 17:39] VITALS: Ht 170.2 cm; Wt 77.2 kg
[2018-12-05 18:19] VITALS: BP 136/63; PULSE 62; RESP 18
[2018-12-05] MEDS: metFORMIN 500 MG TAB PO SCH (18:20)
[2018-12-05 20:19] VITALS: BP 104/56; PULSE 66; RESP 20
[2018-12-05] MEDS: ATORVASTATIN 20 MG TAB PO SCH (20:39)
[2018-12-05] MEDS: MECLIZINE 12.5 MG TAB PO SCH (20:39)
[2018-12-05] MEDS: TAMSULOSIN (SR) 0.4 MG CAP PO SCH (20:39)
[2018-12-05] MEDS: LATANOPROST 0.005% 2.5 ML OPH BOTH EYES SCH (20:40)
[2018-12-05] MEDS: BENAZEPRIL 40 MG TAB PO SCH (20:40)
[2018-12-05] MEDS: ACCU-CHEK XX SCH (21:00)
[2018-12-05 21:22] VITALS: BP 154/65; RESP 20
[2018-12-05 21:26] VITALS: BP 140/63; RESP 20
[2018-12-05 21:28] VITALS: BP 164/65; RESP 20
[2018-12-05 23:34] VITALS: BP 114/57; PULSE 66; RESP 20
[2018-12-06] VITALS (7 sets, daily range): BP systolic 105–171; BP diastolic 50–70; PULSE 63–79; RESP 18–20
[2018-12-06] MEDS: ACCU-CHEK XX SCH ×4 (07:25→21:00)
[2018-12-06] MEDS: metFORMIN 500 MG TAB PO SCH ×2 (08:22→17:43)
[2018-12-06] MEDS: DOCUSATE SODIUM 100 MG CAP PO SCH (08:22)
[2018-12-06] MEDS: SODIUM CHLORIDE 2% OPH 15 ML BTL BOTH EYES SCH (08:22)
[2018-12-06] MEDS: FERROUS SULFATE (EC) 325 MG TAB PO SCH (08:22)
[2018-12-06] MEDS: CLOPIDOGREL 75 MG TAB PO SCH (08:22)
[2018-12-06] MEDS: MECLIZINE 12.5 MG TAB PO SCH ×3 (08:23→20:21)
[2018-12-06] MEDS: CHOLECALCIFEROL 2,000 UNIT CAP PO SCH (08:23)
[2018-12-06] MEDS: BENAZEPRIL 40 MG TAB PO SCH ×2 (08:24→20:22)
[2018-12-06] MEDS: FUROSEMIDE 40 MG TAB PO SCH (08:25)
[2018-12-06] MEDS: ENOXAPARIN 40 MG/0.4 ML SYG SC SCH (08:27)
[2018-12-06] MEDS ORDERED: MAGNESIUM SULFATE 3 GM in DEXTROSE 5% 100 ML IVPB ONE (15:00)
[2018-12-06] MEDS: TAMSULOSIN (SR) 0.4 MG CAP PO SCH (20:21)
[2018-12-06] MEDS: ATORVASTATIN 20 MG TAB PO SCH (20:27)
[2018-12-06] MEDS: LATANOPROST 0.005% 2.5 ML OPH BOTH EYES SCH (20:27)
[2018-12-06] MEDS: POTASSIUM CHLORIDE (SR) 20 MEQ TAB PO SCH (22:10)
[2018-12-07] VITALS (11 sets, daily range): BP systolic 95–173; BP diastolic 52–68; PULSE 60–74; RESP 18–20
[2018-12-07] MEDS: POTASSIUM CHLORIDE (SR) 20 MEQ TAB PO SCH (01:40)
[2018-12-07] MEDS: ACCU-CHEK XX SCH ×4 (07:27→20:54)
[2018-12-07] MEDS: SODIUM CHLORIDE 2% OPH 15 ML BTL BOTH EYES SCH (08:03)
[2018-12-07] MEDS: metFORMIN 500 MG TAB PO SCH ×2 (08:03→16:58)
[2018-12-07] MEDS: CHOLECALCIFEROL 2,000 UNIT CAP PO SCH (08:04)
[2018-12-07] MEDS: MECLIZINE 12.5 MG TAB PO SCH ×3 (08:04→20:54)
[2018-12-07] MEDS: CLOPIDOGREL 75 MG TAB PO SCH (08:04)
[2018-12-07] MEDS: FERROUS SULFATE (EC) 325 MG TAB PO SCH (08:04)
[2018-12-07] MEDS: FUROSEMIDE 40 MG TAB PO SCH (08:04)
[2018-12-07] MEDS: DOCUSATE SODIUM 100 MG CAP PO SCH (08:04)
[2018-12-07] MEDS: BENAZEPRIL 40 MG TAB PO SCH ×2 (08:04→20:54)
[2018-12-07] MEDS: ENOXAPARIN 40 MG/0.4 ML SYG SC SCH (08:07)
[2018-12-07] MEDS: OXYCODONE/ACETAMINOPHEN (5/325) TAB PO PRN (19:40)
[2018-12-07] MEDS: LATANOPROST 0.005% 2.5 ML OPH BOTH EYES SCH (20:53)
[2018-12-07] MEDS: TAMSULOSIN (SR) 0.4 MG CAP PO SCH (20:53)
[2018-12-07] MEDS: ATORVASTATIN 20 MG TAB PO SCH (20:54)
[2018-12-08] VITALS (10 sets, daily range): BP systolic 112–137; BP diastolic 51–79; PULSE 60–73; RESP 18–20
[2018-12-08] MEDS ORDERED: MAGNESIUM HYDROXIDE 30ML CUP PO PRN (00:30)
[2018-12-08] MEDS ORDERED: SENNA TAB PO ONE (00:30)
[2018-12-08] MEDS: ACCU-CHEK XX SCH ×4 (07:14→21:54)
[2018-12-08] MEDS: metFORMIN 500 MG TAB PO SCH ×2 (07:26→17:12)
[2018-12-08] MEDS: SODIUM CHLORIDE 2% OPH 15 ML BTL BOTH EYES SCH (07:26)
[2018-12-08] MEDS: CHOLECALCIFEROL 2,000 UNIT CAP PO SCH (08:17)
[2018-12-08] MEDS: BENAZEPRIL 40 MG TAB PO SCH ×2 (08:17→23:16)
[2018-12-08] MEDS: FERROUS SULFATE (EC) 325 MG TAB PO SCH (08:17)
[2018-12-08] MEDS: CLOPIDOGREL 75 MG TAB PO SCH (08:17)
[2018-12-08] MEDS: DOCUSATE SODIUM 100 MG CAP PO SCH (08:17)
[2018-12-08] MEDS: MECLIZINE 12.5 MG TAB PO SCH ×3 (08:18→21:43)
[2018-12-08] MEDS: FUROSEMIDE 40 MG TAB PO SCH (08:18)
[2018-12-08] MEDS: SENNA TAB PO SCH ×2 (08:18→21:43)
[2018-12-08] MEDS: ENOXAPARIN 40 MG/0.4 ML SYG SC SCH (08:21)
[2018-12-08] MEDS: ATORVASTATIN 20 MG TAB PO SCH (21:43)
[2018-12-08] MEDS: TAMSULOSIN (SR) 0.4 MG CAP PO SCH (21:43)
[2018-12-08] MEDS: OXYCODONE/ACETAMINOPHEN (5/325) TAB PO PRN (21:44)
[2018-12-08] MEDS: LATANOPROST 0.005% 2.5 ML OPH BOTH EYES SCH (21:51)
[2018-12-09 04:00] VITALS: BP 95/54; PULSE 60; RESP 18
[2018-12-09 07:24] VITALS: BP 106/50; PULSE 61; RESP 18
[2018-12-09] MEDS: ACCU-CHEK XX SCH ×4 (07:58→20:32)
[2018-12-09] MEDS: metFORMIN 500 MG TAB PO SCH ×2 (07:59→17:41)
[2018-12-09] MEDS: CHOLECALCIFEROL 2,000 UNIT CAP PO SCH (08:52)
[2018-12-09] MEDS: MECLIZINE 12.5 MG TAB PO SCH ×3 (08:52→20:32)
[2018-12-09] MEDS: DOCUSATE SODIUM 100 MG CAP PO SCH (08:52)
[2018-12-09] MEDS: SENNA TAB PO SCH ×2 (08:52→20:31)
[2018-12-09] MEDS: SODIUM CHLORIDE 2% OPH 15 ML BTL BOTH EYES SCH (08:52)
[2018-12-09] MEDS: CLOPIDOGREL 75 MG TAB PO SCH (08:52)
[2018-12-09] MEDS: FUROSEMIDE 40 MG TAB PO SCH (08:53)
[2018-12-09] MEDS: FERROUS SULFATE (EC) 325 MG TAB PO SCH (08:53)
[2018-12-09] MEDS: BENAZEPRIL 40 MG TAB PO SCH ×2 (08:54→20:31)
[2018-12-09] MEDS: ENOXAPARIN 40 MG/0.4 ML SYG SC SCH (09:01)
[2018-12-09 11:30] VITALS: BP 118/46; PULSE 63; RESP 18
[2018-12-09] MEDS: CYANOCOBALAMIN 500 MCG TAB PO SCH (15:59)
[2018-12-09] MEDS: OXYCODONE/ACETAMINOPHEN (5/325) TAB PO PRN (16:42)
[2018-12-09] MEDS: ARTIFICIAL TEARS 15 ML OPH BOTH EYES SCH ×2 (18:05→20:30)
[2018-12-09 19:44] VITALS: BP 105/53; PULSE 63; RESP 18
[2018-12-09] MEDS: LATANOPROST 0.005% 2.5 ML OPH BOTH EYES SCH ×2 (20:29→21:00)
[2018-12-09] MEDS: ATORVASTATIN 20 MG TAB PO SCH (20:31)
[2018-12-09] MEDS: TAMSULOSIN (SR) 0.4 MG CAP PO SCH (20:32)
[2018-12-10] VITALS (7 sets, daily range): BP systolic 95–125; BP diastolic 52–66; PULSE 59–79; RESP 18–22
[2018-12-10] MEDS: metFORMIN 500 MG TAB PO SCH ×2 (07:34→17:05)
[2018-12-10] MEDS: ACCU-CHEK XX SCH ×4 (07:35→20:15)
[2018-12-10] MEDS: FERROUS SULFATE (EC) 325 MG TAB PO SCH (08:32)
[2018-12-10] MEDS: SODIUM CHLORIDE 2% OPH 15 ML BTL BOTH EYES SCH (08:32)
[2018-12-10] MEDS: CYANOCOBALAMIN 500 MCG TAB PO SCH (08:32)
[2018-12-10] MEDS: CLOPIDOGREL 75 MG TAB PO SCH (08:32)
[2018-12-10] MEDS: ARTIFICIAL TEARS 15 ML OPH BOTH EYES SCH ×4 (08:32→20:13)
[2018-12-10] MEDS: CHOLECALCIFEROL 2,000 UNIT CAP PO SCH (08:32)
[2018-12-10] MEDS: MECLIZINE 12.5 MG TAB PO SCH ×3 (08:32→20:14)
[2018-12-10] MEDS: FUROSEMIDE 40 MG TAB PO SCH (08:33)
[2018-12-10] MEDS: BENAZEPRIL 40 MG TAB PO SCH ×2 (08:33→20:15)
[2018-12-10] MEDS: ENOXAPARIN 40 MG/0.4 ML SYG SC SCH (08:35)
[2018-12-10] MEDS: DOCUSATE SODIUM 100 MG CAP PO SCH (08:40)
[2018-12-10] MEDS: SENNA TAB PO SCH ×2 (08:40→20:15)
[2018-12-10] MEDS ORDERED: LOPERAMIDE 2 MG CAP PO ONE (20:00)
[2018-12-10] MEDS: LATANOPROST 0.005% 2.5 ML OPH BOTH EYES SCH (20:14)
[2018-12-10] MEDS: ATORVASTATIN 20 MG TAB PO SCH (20:15)
[2018-12-10] MEDS: TAMSULOSIN (SR) 0.4 MG CAP PO SCH (20:15)
[2018-12-11] VITALS (7 sets, daily range): BP systolic 84–136; BP diastolic 51–66; PULSE 52–71; RESP 18–22
[2018-12-11] MEDS: ACCU-CHEK XX SCH ×4 (07:41→20:34)
[2018-12-11] MEDS: metFORMIN 500 MG TAB PO SCH ×2 (07:42→17:04)
[2018-12-11] MEDS: SENNA TAB PO SCH ×2 (08:45→20:32)
[2018-12-11] MEDS: DOCUSATE SODIUM 100 MG CAP PO SCH (08:45)
[2018-12-11] MEDS: CLOPIDOGREL 75 MG TAB PO SCH (08:46)
[2018-12-11] MEDS: CHOLECALCIFEROL 2,000 UNIT CAP PO SCH (08:46)
[2018-12-11] MEDS: MECLIZINE 12.5 MG TAB PO SCH ×3 (08:46→20:32)
[2018-12-11] MEDS: FUROSEMIDE 40 MG TAB PO SCH (08:46)
[2018-12-11] MEDS: FERROUS SULFATE (EC) 325 MG TAB PO SCH (08:47)
[2018-12-11] MEDS: ARTIFICIAL TEARS 15 ML OPH BOTH EYES SCH ×4 (08:48→20:31)
[2018-12-11] MEDS: SODIUM CHLORIDE 2% OPH 15 ML BTL BOTH EYES SCH (08:48)
[2018-12-11] MEDS: ENOXAPARIN 40 MG/0.4 ML SYG SC SCH (08:48)
[2018-12-11] MEDS: BENAZEPRIL 40 MG TAB PO SCH ×2 (11:22→20:33)
[2018-12-11] MEDS: CYANOCOBALAMIN 500 MCG TAB PO SCH (11:24)
[2018-12-11] MEDS ORDERED: SOD CHLORIDE 0.9% 500 ML IV ONE (13:30)
[2018-12-11] MEDS: LATANOPROST 0.005% 2.5 ML OPH BOTH EYES SCH (20:31)
[2018-12-11] MEDS: ATORVASTATIN 20 MG TAB PO SCH (20:32)
[2018-12-11] MEDS: TAMSULOSIN (SR) 0.4 MG CAP PO SCH (20:32)
[2018-12-12] VITALS (15 sets, daily range): BP systolic 79–125; BP diastolic 48–65; PULSE 60–67; RESP 17–22
[2018-12-12] MEDS: ACCU-CHEK XX SCH ×4 (07:47→20:29)
[2018-12-12] MEDS: metFORMIN 500 MG TAB PO SCH ×2 (08:18→17:33)
[2018-12-12] MEDS: CYANOCOBALAMIN 500 MCG TAB PO SCH (08:19)
[2018-12-12] MEDS: CLOPIDOGREL 75 MG TAB PO SCH (08:19)
[2018-12-12] MEDS: CHOLECALCIFEROL 2,000 UNIT CAP PO SCH (08:19)
[2018-12-12] MEDS: SENNA TAB PO SCH ×2 (08:20→08:25)
[2018-12-12] MEDS: DOCUSATE SODIUM 100 MG CAP PO SCH ×2 (08:20→08:25)
[2018-12-12] MEDS: SODIUM CHLORIDE 2% OPH 15 ML BTL BOTH EYES SCH (08:21)
[2018-12-12] MEDS: ARTIFICIAL TEARS 15 ML OPH BOTH EYES SCH ×4 (08:21→20:29)
[2018-12-12] MEDS: FERROUS SULFATE (EC) 325 MG TAB PO SCH (08:21)
[2018-12-12] MEDS: FUROSEMIDE 40 MG TAB PO SCH (08:29)
[2018-12-12] MEDS: MECLIZINE 12.5 MG TAB PO SCH ×3 (08:29→20:29)
[2018-12-12] MEDS: BENAZEPRIL 40 MG TAB PO SCH (08:29)
[2018-12-12] MEDS: ENOXAPARIN 40 MG/0.4 ML SYG SC SCH (08:35)
[2018-12-12] MEDS ORDERED: LOPERAMIDE 2 MG CAP PO PRN (15:30)
[2018-12-12] MEDS ORDERED: SOD CHLORIDE 0.9% 500 ML IV ONE (16:00)
[2018-12-12] MEDS: ATORVASTATIN 20 MG TAB PO SCH (20:29)
[2018-12-12] MEDS: TAMSULOSIN (SR) 0.4 MG CAP PO SCH (20:29)
[2018-12-12] MEDS: LATANOPROST 0.005% 2.5 ML OPH BOTH EYES SCH (20:29)
[2018-12-12] MEDS ORDERED: BENAZEPRIL 20 MG TAB PO SCH (21:00)
[2018-12-12] MEDS: OXYCODONE/ACETAMINOPHEN (5/325) TAB PO PRN (21:16)
[2018-12-13] VITALS (10 sets, daily range): BP systolic 81–99; BP diastolic 50–58; PULSE 44–69; RESP 17–18
[2018-12-13] MEDS ORDERED: SOD CHLORIDE 0.9% 500 ML IV ONE (01:00)
[2018-12-13] MEDS: metFORMIN 500 MG TAB PO SCH ×2 (07:53→17:52)
[2018-12-13] MEDS: ACCU-CHEK XX SCH ×4 (07:53→21:00)
[2018-12-13] MEDS: FUROSEMIDE 40 MG TAB PO SCH (09:00)
[2018-12-13] MEDS ORDERED: BENAZEPRIL 10 MG TAB PO SCH (09:00)
[2018-12-13] MEDS: MECLIZINE 12.5 MG TAB PO SCH ×3 (09:35→21:26)
[2018-12-13] MEDS: DOCUSATE SODIUM 100 MG CAP PO SCH (09:35)
[2018-12-13] MEDS: CLOPIDOGREL 75 MG TAB PO SCH (09:35)
[2018-12-13] MEDS: CYANOCOBALAMIN 500 MCG TAB PO SCH (09:35)
[2018-12-13] MEDS: CHOLECALCIFEROL 2,000 UNIT CAP PO SCH (09:35)
[2018-12-13] MEDS: OXYCODONE/ACETAMINOPHEN (5/325) TAB PO PRN (09:36)
[2018-12-13] MEDS: SODIUM CHLORIDE 2% OPH 15 ML BTL BOTH EYES SCH (09:37)
[2018-12-13] MEDS: ARTIFICIAL TEARS 15 ML OPH BOTH EYES SCH ×4 (09:37→21:25)
[2018-12-13] MEDS: FERROUS SULFATE (EC) 325 MG TAB PO SCH (09:41)
[2018-12-13] MEDS: ENOXAPARIN 40 MG/0.4 ML SYG SC SCH (09:53)
[2018-12-13] MEDS: LATANOPROST 0.005% 2.5 ML OPH BOTH EYES SCH (21:26)
[2018-12-13] MEDS: TAMSULOSIN (SR) 0.4 MG CAP PO SCH (21:26)
[2018-12-13] MEDS: ATORVASTATIN 20 MG TAB PO SCH (21:26)
[2018-12-14 03:15] VITALS: BP 93/56; PULSE 61; RESP 18
[2018-12-14 07:13] VITALS: BP 110/47; PULSE 60; RESP 18
[2018-12-14] MEDS: metFORMIN 500 MG TAB PO SCH ×2 (07:47→17:38)
[2018-12-14] MEDS: ARTIFICIAL TEARS 15 ML OPH BOTH EYES SCH ×2 (07:47→13:06)
[2018-12-14] MEDS: ACCU-CHEK XX SCH ×2 (07:47→12:09)
[2018-12-14] MEDS: SODIUM CHLORIDE 2% OPH 15 ML BTL BOTH EYES SCH (07:50)
[2018-12-14] MEDS ORDERED: MAGNESIUM CHLORIDE (SR) 64 MG TAB PO ONE (09:00)
[2018-12-14] MEDS: CHOLECALCIFEROL 2,000 UNIT CAP PO SCH (09:18)
[2018-12-14] MEDS: DOCUSATE SODIUM 100 MG CAP PO SCH (09:18)
[2018-12-14] MEDS: MECLIZINE 12.5 MG TAB PO SCH ×2 (09:18→13:06)
[2018-12-14] MEDS: CYANOCOBALAMIN 500 MCG TAB PO SCH (09:19)
[2018-12-14] MEDS: CLOPIDOGREL 75 MG TAB PO SCH (09:19)
[2018-12-14] MEDS: FERROUS SULFATE (EC) 325 MG TAB PO SCH (09:19)
[2018-12-14] MEDS: ENOXAPARIN 40 MG/0.4 ML SYG SC SCH (09:29)
[2018-12-14 11:02] VITALS: BP 109/51; PULSE 59; RESP 18
[2018-12-14 15:10] VITALS: BP 125/95; PULSE 60; RESP 18
== END 2018-12-14 18:30 | disposition home health service (06) | DRG 312 ==
LOC: E/R 12:36 → TEL 14:39
PROVIDERS: ADMIT Internal Medicine; ATTEND Internal Medicine
DX: I95.1 Orthostatic hypotension (principal); R42 Dizziness and giddiness; I10 Essential (primary) hypertension; E11.8 Type 2 diabetes mellitus with unspecified complications; Z95.1 Presence of aortocoronary bypass graft; N40.0 Benign prostatic hyperplasia without lower urinary tract symptoms; Z95.0 Presence of cardiac pacemaker; E78.5 Hyperlipidemia, unspecified; R51 Headache; H40.9 Unspecified glaucoma; I25.5 Ischemic cardiomyopathy
CPT/HCPCS: 36415; 70450; 71045; 80048; 80053; 80061; 80307; 81003; 82962; 83036; 83735; 83880; 84100; 84439; 84443; 84484; 85025; 85610; 85730; 92526; 92610; 93005; 93306; 96374; 96375; 97116; 97162; 97530; J1650; J2060; J2270; J2405; J3475; J7040